=== PATIENT | female | born 2005 | race Two or more races ===

== ENCOUNTER 2024-12-20 07:37 | Emergency (ER) | payer MEDICAID, SELFPAY ==
[2024-12-20 07:39] VITALS: BMI 44.9
[2024-12-20 07:45] VITALS: BP 102/69; PULSE 110; RESP 19; TEMP 37.2; O2SAT 95; BMI 43.0
--- NOTE | 2024-12-20 07:53 | XR_ITS ---
Examination: PA lateral chest 2 views TECHNIQUE: Upright PA lateral chest 2 views Exam date and time: December 20, 2024 0910 hours INDICATIONS: Coughing fever beginning one week ago FINDINGS: Suspicious for early right base pneumonia. Normal heart size Osseous structures are intact IMPRESSION: Suspicious for early right base pneumonia
--- NOTE | 2024-12-20 07:54 | EDNOTE_ITS ---
ED General RME/HPI General Chief complaint: Flu Like Symptoms Stated complaint: COUGH & FEVER (102.2) Time Seen by Provider: 12/20/24 07:46 Source: patient Arrival date/time: 12/20/24 07:37 19-year-old female with no known medical history presents to the emergency room with a chief complaint of a cough and fever x 1 week Mode of arrival: ambulatory Limitations: no limitations Related Data Previous Rx's ?Medication ?Instructions ?Recorded ibuprofen 400 mg tablet 400 mg PO Q8H PRN 3 #20 tabs 10/05/17 ibuprofen 600 mg tablet (IBU) 600 mg PO Q6H #20 tabs 0 12/16/22 cyclobenzaprine 5 mg tablet 5 mg PO TID PRN muscle spa sm #30 08/30/23 tabs naproxen 500 mg tablet 500 mg PO BID PRN pain #30 t abs 08/30/23 amoxicillin 875 mg-potassium 1 tab PO BID 7 days #14 t abs 12/20/24 clavulanate 125 mg tablet Allergies Allergy/AdvReac Type Severity Reaction Status Date / Time No Known Allergies Allergy Verified 10/05/17 10:43 Review of Systems Review of Systems Systems Reviewed: All systems reviewed, normal except as documented Constitutional Constitutional: Reports system reviewed and no additional complaints, except as documented, Denies fatigue, Reports fever(s), Denies headache(s) and Denies weakness Eyes Eyes: Reports system reviewed and no additional complaints, except as documented, Denies blurry vision and Denies change in vision ENT Ears, Nose, Mouth, and Throat: Reports system reviewed and no additional complaints, except as documented, Denies otalgia, Denies headache(s), Denies nasal congestion, Denies throat swelling and Denies vertigo Cardiovascular Cardiovascular: Reports system reviewed and no additional complaints, except as documented, Denies chest pain, Denies dyspnea and Denies dyspnea on exertion Respiratory Respiratory: Reports system reviewed and no additional complaints, except as documented, Denies chest congestion, Reports cough, Denies dyspnea, Denies dyspnea on exertion and Denies wheezing Gastrointestinal Gastrointestinal: Reports system reviewed and no additional complaints, except as documented, Denies abdominal pain, Denies cramping, Denies nausea and Denies vomiting Genitourinary Genitourinary: Reports system reviewed and no additional complaints, except as documented Musculoskeletal Musculoskeletal: Reports system reviewed and no additional complaints, except as documented and Denies back pain Integumentary/Breasts Skin/Breast: Reports system reviewed and no additional complaints, except as documented and Denies wounds Neurologic Neurologic: Reports system reviewed and no additional complaints, except as documented, Denies confusion, Denies headache(s), Denies lack of coordination, Denies vertigo and Denies weakness Psychiatric Psychiatric: Reports system reviewed and no additional complaints, except as documented, Denies anxiety, Denies confusion, Denies depression, Denies paranoia, Denies suicidal ideation and Denies tactile hallucinations Endocrine Endocrine: Reports system reviewed and no additional complaints, except as documented and Denies fatigue Hematologic/Lymphatic Hematologic/Lymphatic: Reports system reviewed and no additional complaints, except as documented and Denies lymphadenopathy Allergic/Immunologic Allergic/Immunologic: Reports system reviewed and no additional complaints, except as documented, Denies throat swelling, Denies urticaria and Denies wheezing Past Medical History Past Medical History CARDIAC: Negative Cardiac Disorders or Congestive Heart Failure RESPIRATORY: Negative Chronic Obstructive Pulmonary Disease (COPD) or Asthma GENITOURINARY: Negative Renal Disease ENDOCRINE: Negative Diabetes Mellitus Type 1 or Diabetes Mellitus Type 2 HEMATOLOGIC: Negative Sickle Cell Disease Family History FAMILY HISTORY: Negative Family Psychiatric Problems, Family Respiratory Disorders, Family Cardiac Disorders or Family Gastrointestinal Problems Social History SMOKING STATUS: Never smoker ED Exam General Limitations: Present no limitations General appearance: Present alert and in no apparent distress Head Head exam: Present atraumatic Eye Eye exam: Present normal appearance, PERRL and EOMI ENT ENT exam: Present normal exam, normal oropharynx and mucous membranes moist Neck Neck exam: Present normal inspection, full ROM and trachea midline Chest Chest inspection: Present normal inspection and symmetric chest wall rise Respiratory Respiratory exam: Present normal lung sounds bilaterally; Absent respiratory distress, wheezes, stridor, accessory muscle use or prolonged expiratory phase Cardiovascular Cardiovascular exam: Present regular rate, normal rhythm and normal heart sounds; Absent tachycardia Abdominal Exam Abdominal exam: Present soft and normal bowel sounds Extremities Exam Extremities exam: Present normal inspection and full ROM Back Exam Back exam: Present normal inspection and full ROM Neurological Exam Neurological exam: Present alert, oriented X3 and CN II-XII intact Psychiatric Psychiatric exam: Present normal affect and normal mood Skin Skin exam: Present warm, dry, intact and normal color Course Quality Measures none Orders Category Date Time Status Bedside COVID-19 Antigen Test NOW Care 12/20/24 07:53 Active Bedside Influenza A&B Antigen Test NOW Care 12/20/24 07:53 Completed XR chest 2V Stat Exams 12/20/24 07:53 Completed Strep A Rapid Stat Lab 12/20/24 08:02 Completed Vital Signs Vital signs: Vital Signs Temperature 98.9 F 12/20/24 07:45 Pulse Rate 110 H 12/20/24 07:45 Respiratory Rate 19 12/20/24 07:45 Blood Pressure 102/69 12/20/24 07:45 Pulse Oximetry (%) 95 12/20/24 07:45 Oxygen Delivery Method Room Air 12/20/24 07:45 O2 saturation 95% within normal limits Discharge Plan Plan Patient Disposition: HOME (Self Care) Discharge Disposition comment: Stable Prescriptions/Referrals Prescriptions/Med Rec: New amoxicillin-pot clavulanate 875-125 mg tablet 1 tab PO BID 7 Days Qty: 14 0RF No Action ibuprofen 400 mg tablet 400 mg PO Q8H PRN (Reason: 3) Qty: 20 0RF naproxen 500 mg tablet 500 mg PO BID PRN (Reason: pain) Qty: 30 0RF cyclobenzaprine 5 mg tablet 5 mg PO TID PRN (Reason: muscle spasm) Qty: 30 0RF ibuprofen [IBU] 600 mg tablet 600 mg PO Q6H Qty: 20 0RF Referrals: No Primary/Family,Physician [Primary Care Provider] - In 1 week Problem List Clinical Impression: Community acquired pneumonia Patient/Caregiver Discharge Instructions Education Materials: ED Pneumonia (Adult) Additional Instructions: Please follow-up with your primary care provider in the next 24 to 48 hours Chest x-ray showed pneumonia. Antibiotics are sent to your pharmacy please pick them up and take them as indicated Your COVID-19, influenza, strep test were all negative. For any evidence of worsening signs or symptoms return to the emergency room immediately Print Language: Telugu Stand Alone Forms: [facility] Award Info., Work/School Release, Patient Portal Info Letter PA/CAD DRAFTER Supervising Physician LAURIE/SHARA Supervising Physician: Dr Sinclair MDM Narrative MDM hospital course (for use when minimal MDM required): 19-year-old female with no known medical history presents to the emergency room with a chief complaint of a cough and fever x 1 week Patient is hemodynamically stable and in no apparent distress. She is afebrile not tachypneic and O2 saturation of 95% on room air Physical examination shows clear bilateral lung sounds there is no wheezing or any abnormal breath sounds Chest x-ray was completed and shows early right-sided pneumonia. Antibiotics were sent to the patient's pharmacy. COVID-19 influenza and strep are all negative Patient was discharged and educated to follow-up with primary care provider in the next 24 to 48 hours and return to the emergency room for any evidence of worsening signs or symptoms Clinical Information Provided by: patient Medical Records reviewed None and [facility] Meds/Rx considered, not ordered describe: Rx given Labs/Rad/Tests considered, not ordered None Chronic Illness/Social Conditions which may negatively complicate care or outcome(s)-explain: None or not applicable EKG EKG not done Labs Labs: none Imaging Imaging interpretation: interpreted by me Imaging Interpretation(s): Chest [id number]: Suspicious for early right base pneumonia. Normal heart size Osseous structures are intact IMPRESSION: Suspicious for early right base pneumonia Medication Administration(s) Rx given Diagnosis Differential Diagnosis ED Complaint MDM: Community-acquired pneumonia/influenza/COVID-19/pharyngitis Diagnoses ruled out and/or further discussions: Influenza/COVID-19/pharyngitis
[2024-12-20 08:30] LABS: Strep A Rapid Negative (Negative)
== END 2024-12-20 08:58 | disposition home or self-care (01) ==
PROVIDERS: Nurse Practitioner Family; Emergency Provider Emergency Medicine
DX: J18.9 Pneumonia, unspecified organism (principal)
CPT/HCPCS: 71046; 87400; 87651; 87811; 99283

== ENCOUNTER 2025-03-21 21:20 | Emergency (ER) | payer MEDICAID, SELFPAY ==
[2025-03-21 21:22] VITALS: BMI 47.2
--- NOTE | 2025-03-21 21:31 | EDNOTE_ITS ---
ED OB Contraction Preg RMI/HPI General Chief complaint: Vaginal Bleeding Stated complaint: VAG BLEEDING IUD PLACED 02/04/25 Time Seen by Provider: 03/21/25 21:35 Arrival date/time: 03/21/25 21:20 RME / HPI RME / HPI Narrative: See MDM. Related Data Previous Rx's ?Medication ?Instructions ?Recorded ibuprofen 400 mg tablet 400 mg PO Q8H PRN 3 #20 tabs 10/05/17 ibuprofen 600 mg tablet (IBU) 600 mg PO Q6H #20 tabs 0 12/16/22 cyclobenzaprine 5 mg tablet 5 mg PO TID PRN muscle spa sm #30 08/30/23 tabs naproxen 500 mg tablet 500 mg PO BID PRN pain #30 t abs 08/30/23 acetaminophen 300 mg-codeine 30 mg 2 tab PO Q8H PRN pa in #20 tabs 03/22/25 tablet cefdinir 300 mg capsule 300 mg PO BID #14 caps 03/22 ondansetron 4 mg disintegrating 4 mg PO TID PRN nausea and 03/22/25 tablet vomiting 30 days #10 tabs Allergies Allergy/AdvReac Type Severity Reaction Status Date / Time No Known Allergies Allergy Verified 03/21/25 21:25 Review of Systems Review of Systems Systems Reviewed: All systems reviewed, normal except as documented Past Medical History Past Medical History CARDIAC: Negative Cardiac Disorders or Congestive Heart Failure RESPIRATORY: Negative Chronic Obstructive Pulmonary Disease (COPD) or Asthma GENITOURINARY: Negative Renal Disease ENDOCRINE: Negative Diabetes Mellitus Type 1 or Diabetes Mellitus Type 2 HEMATOLOGIC: Negative Sickle Cell Disease Family History FAMILY HISTORY: Negative Family Psychiatric Problems, Family Respiratory Disorders, Family Cardiac Disorders or Family Gastrointestinal Problems Social History SMOKING STATUS: Never smoker ED Exam Narrative Physical exam: As noted in MDM. Course Quality Measures none Orders Category Date Time Status CT Screening NOW Care 03/21/25 21:32 Completed Saline [Insert IV] NOW Care 03/21/25 21:31 Completed Straight [In and Out Catheter] X1 Care 03/21/25 21:[address] abdomen pelvis w con Stat Exams 03/21/25 21:32 Completed US transvaginal Stat Exams 03/21/25 21:32 Completed XR chest 1V portable Stat Exams 03/21/25 21:33 Completed Bilirubin,Direct Stat Lab 03/21/25 22:10 Completed Blood Culture (Lab) Stat Lab 03/21/25 22:30 Received CBC Stat Lab 03/21/25 22:10 Completed CMP [Comprehensive Metabolic Panel] Stat Lab 03/21/25 22:10 Completed CRP [C-Reactive Protein] Stat Lab 03/21/25 22:10 Completed ESR [Sed Rate (ESR)] Stat Lab 03/21/25 22:10 Completed HCG Qualitative,Urine Stat Lab 03/21/25 22:10 Completed HCG,Qualitative Serum Stat Lab 03/21/25 22:10 Completed Lactate (Lactic Acid) Stat Lab 03/21/25 22:10 Completed Magnesium Stat Lab 03/21/25 22:10 Completed PT [Prothrombin Time with INR] Stat Lab 03/21/25 22:10 Completed PTT [Partial Thromboplastin Time] Stat Lab 03/21/25 22:10 Completed Procalcitonin Stat Lab 03/21/25 22:10 Completed UA, C/S IF [Urinalysis, C/S if Indicated] Stat Lab 03/21/25 22:10 Completed Urine Culture Stat Lab 03/21/25 22:10 Received HYDROmorphone INJ [Dilaudid Inj] Med 03/22/25 00:29 Discontinued 1 mg IVP X1 ONE HYDROmorphone INJ [Dilaudid Inj] Med 03/22/25 01:24 Discontinued 1 mg IVP X1 ONE Ketorolac Inj [Toradol Inj] Med 03/21/25 21:31 Discontinued 30 mg IVP X1 ONE Morphine Inj Med 03/21/25 21:31 Discontinued 4 mg IVP X1 ONE Ondansetron Inj [Zofran Inj] Med 03/21/25 21:31 Discontinued 4 mg IVP X1 ONE Ondansetron Inj [Zofran Inj] Med 03/22/25 00:29 Discontinued 4 mg IVP X1 ONE Sodium Chloride 0.9% 1000 ml [Ns] 1,000 ml Med 03/21/25 21:31 Discontinued IV 999 mls/hr cefTRIAXone/D5w 1gm IV premix [Rocephin/D5w 1gm IV Med 03/21/25 23:26 Discontinued premix] 1 gm in 50 ml IV X1 Vital Signs Vital signs: Vital Signs Temperature 98.1 F 03/21/25 21:39 Pulse Rate 88 03/21/25 21:39 Respiratory Rate 20 03/21/25 21:39 Blood Pressure 120/77 03/21/25 21:39 Pulse Oximetry (%) 98 03/21/25 21:39 Oxygen Delivery Method Room Air 03/21/25 21:39 PROCEDURES: Foreign Body Removal Time Out Performed: yes Site: vagina Description of foreign body: other (IUD) Sedation/Analgesia: none Technique: removal with forceps Confirmed by:: direct visualization and patient report Complications: none Post-procedure exam: awake, alert, normal BP, normal HR and normal O2 sat Neurovascular: no change from pre-procedure Vaginal Bleeding MDM Narrative MDM Narrative: This section includes all my notes and documentations, including HPI, PE, and ED course. Maurilio Phipps MD HPI: 19yo female here with complaints of cramping and vaginal bleeding for the last few days. Patient had an IUD placed about a month ago. No other complaints reported. ROS: All negative except as documented in HPI. Physical Exam: General: Alert and oriented. In obvious pain. Eyes: Conjunctivae and lids clear. ENT: No nasal congestion. Neck: Supple. Heart: RRR. Lungs: No respiratory distress. Good air movement. No rhonchi, wheezing, rales. Abdomen: Soft with pelvic tenderness. Normal bowel sounds. No distension. No rebound or guarding. Back: No CVA tenderness. Skin: Warm and dry. Neuro: Alert and oriented X 3. I reviewed all diagnostic test results. My interpretation of the chest x-ray is NAD. My review of the transvaginal US report is intrauterine device in the lower uterine segment and uterine body. My review of the CT abdomen pelvis report is intrauterine device abnormally low in position in the lower uterine segment. Blood tests remarkable unremarkable. UA remarkable for positive leukocyte esterase, 43799 RBCs, and 187 WBCs. At this point, diagnoses include: Pelvic pain and bleeding due to IUD UTI Treatment here included Toradol, Morphine, Zofran, Rocephin, IV fluid, Dilaudid. I discussed the case with our CONSULTING APPLICATION ENGINEER. About the presentation and exam and diagnostics and treatments here. And possible need of further care in the hospital. Recommended IUD removal and outpatient management. IUD was removed successfully, see procedure note. Significant improvement noted. Based on my best medical judgment, made decision no further evaluation or treatment indicated at this time. Patient understands and agrees to the discharge instructions customized and printed, see below. Discharge instructions from Dr. Phipps: 1. After evaluation, you are cramping and bleeding was due to your uterus trying to get the IUD out. 2. The symptoms will get better as we remove the IUD for you. 3. Ibuprofen 800 mg every 6-8 hours today and tomorrow to decrease inflammation then as needed. 4. Tylenol with codeine for severe pain. 5. Take cefdinir for UTI. To flush your urinary tract, increase oral fluid and maintain clear urine. If dark or yellow, increase oral fluid. Zofran for nausea/vomiting. 5. See a private doctor on 03/24/2025 for recheck and further care. Ask to review all test results and official radiology reports, to make sure you receive all necessary follow-ups and monitoring, including final urine culture results from today. 6. Seek immediate medical care with worsening, fever, or with any concerns. Maurilio Phipps MD Patient data External records reviewed:: [facility] previous records (Per chart review, patient has no relevant previous ED visits.) Clinical information provided by:: patient Social determinants that could affect healthcare access:: none Patient has the following chronic illnesses:: none How is presenting disease/condition affected by chronic disease/condition?: no chronic disease Evaluation data The following diagnostics were reviewed and interpreted by me:: lab results and radiology exam(s) Lab and/or radiology exams considered but not ordered:: none Interpretation Summary: I reviewed all diagnostic test results. My interpretation of the chest x-ray is NAD. My review of the transvaginal US report is intrauterine device in the lower uterine segment and uterine body. My review of the CT abdomen pelvis report is intrauterine device abnormally low in position in the lower uterine segment. Blood tests remarkable unremarkable. UA remarkable for positive leukocyte esterase, 41039 RBCs, and 187 WBCs. Medications / Prescriptions Medications or Prescriptions considered but not ordered:: none Medication administrations:: Medication Administration History Discontinued Medications Hydromorphone HCl (Hydromorphone Inj 2 Mg/Ml Vial) 1 mg IVP X1 ONE Stop: 03/22/25 00:30 Last Admin: 03/22/25 00:37 Dose: 1 mg Documented By: TABITHA Hydromorphone HCl (Hydromorphone Inj 2 Mg/Ml Vial) 1 mg IVP X1 ONE Stop: 03/22/25 01:25 Last Admin: 03/22/25 01:36 Dose: 1 mg Documented By: Sodium Chloride (Ns) 1,000 mls @ 999 mls/hr IV .Q1H1M ONE Stop: 03/21/25 22:31 Last Infusion: 03/21/25 23:21 Dose: Infused Documented By: Admin: 03/21/25 22:12 Dose: 999 mls/hr Documented By: TABITHA Ceftriaxone Sodium/Dextrose (Rocephin/D5w 1gm Iv Premix) 1 gm in 50 mls @ 100 mls/hr IV X1 ONE Stop: 03/21/25 23:55 Last Infusion: 03/22/25 01:30 Dose: Infused Documented By: Admin: 03/22/25 00:37 Dose: 100 mls/hr Documented By: TABITHA Ketorolac Tromethamine (Ketorolac Inj 30 Mg/Ml Vial) 30 mg IVP X1 ONE Stop: 03/21/25 21:32 Last Admin: 03/21/25 22:11 Dose: 30 mg Documented By: TABITHA Morphine Sulfate (Morphine Sulf Inj 10 Mg/Ml Vial) 4 mg IVP X1 ONE Stop: 03/21/25 21:32 Last Admin: 03/21/25 22:11 Dose: 4 mg Documented By: TABITHA Ondansetron HCl (Ondansetron Inj 2 Mg/Ml Inj 2 Ml) 4 mg IVP X1 ONE; Protocol Stop: 03/21/25 21:32 Last Admin: 03/21/25 22:11 Dose: 4 mg Documented By: TABITHA Ondansetron HCl (Ondansetron Inj 2 Mg/Ml Inj 2 Ml) 4 mg IVP X1 ONE; Protocol Stop: 03/22/25 00:30 Last Admin: 03/22/25 00:52 Dose: Not Given Documented By: TABITHA Non-Admin Reason: Patient Refused Toradol, Morphine, Zofran, Rocephin, IV fluid, Dilaudid Consultations Consultation(s) initiated? (list below): No Diagnosis Vaginal Bleeding Differential Diagnosis: missed , threatened , dysfunctional uterine bleeding, menometrorrhagia, incomplete , ectopic without intrauterine and vaginal bleeding Most likely diagnosis given after review of the tests above:: At this point, diagnoses include: Pelvic pain and bleeding due to IUD UTI Admission Indicated Admission indicated?: not indicated Explain why admission is indicated or not indicated:: With significant improvement and no condition needing emergent intervention, there was no indication for admission. Admission Request Was there a request for admission?: No Disposition Plan Disposition Plan: Discharge Discharge Attestation Discharge Attestation: The patient and all family members were given an opportunity to ask questions and understood the discharge instructions. Discharge instructions specifically effects, indications for sooner follow up or return to the emergency department, and the expected course of current diagnosis. Patient condition: Stable Discharge Plan Plan Patient Disposition: HOME (Self Care) Prescriptions/Referrals Prescriptions/Med Rec: New acetaminophen-codeine 300-30 mg tablet 2 tab PO Q8H MDD 6 PRN (Reason: pain) Qty: 20 0RF ondansetron 4 mg tablet,disintegrating 4 mg PO TID PRN (Reason: nausea and vomiting) 30 Days Qty: 10 0RF cefdinir 300 mg capsule 300 mg PO BID Qty: 14 0RF No Action ibuprofen 400 mg tablet 400 mg PO Q8H PRN (Reason: 3) Qty: 20 0RF naproxen 500 mg tablet 500 mg PO BID PRN (Reason: pain) Qty: 30 0RF cyclobenzaprine 5 mg tablet 5 mg PO TID PRN (Reason: muscle spasm) Qty: 30 0RF ibuprofen [IBU] 600 mg tablet 600 mg PO Q6H Qty: 20 0RF Referrals: No Primary/Family,Physician [Primary Care Provider] - In 1 week Problem List Clinical Impression: Pelvic pain, Vaginal bleeding, Remove/insert IUD, UTI (urinary tract infection) Patient/Caregiver Discharge Instructions Discharge Activity: activity as tolerated Education Materials: ED CYSTITIS Female Adult Additional Instructions: Discharge instructions from Dr. Phipps: 1. After evaluation, you are cramping and bleeding was due to your uterus trying to get the IUD out. 2. The symptoms will get better as we remove the IUD for you. 3. Ibuprofen 800 mg every 6-8 hours today and tomorrow to decrease inflammation then as needed. 4. Tylenol with codeine for severe pain. 5. Take cefdinir for UTI. To flush your urinary tract, increase oral fluid and maintain clear urine. If dark or yellow, increase oral fluid. Zofran for nausea/vomiting.? 5. See a private doctor on 03/24/2025 for recheck and further care. Ask to review all test results and official radiology reports, to make sure you receive all necessary follow-ups and monitoring, including final urine culture results from today. 6. Seek immediate medical care with worsening, fever, or with any concerns. Print Language: Korean Stand Alone Forms: [facility] Award Info., Work/School Release, Patient Portal Info Letter
--- NOTE | 2025-03-21 21:32 | XR_ITS ---
Examination: Transvaginal ultrasound of the pelvis, complete Technique: Transvaginal sonographic images pelvis performed using pena scale imaging Exam date and time: March 21, 2025 10:56 PM INDICATIONS: Heavy vaginal bleeding beginning 2 days ago FINDINGS: Uterus 7.8 cm Intrauterine device in the lower uterine segment and uterine body No uterine mass Endometrial stripe 0.5 cm Right ovary 4.2 cm arterial flow 3.4 cm cyst Left ovary is obscured by bowel gas IMPRESSION: Intrauterine device in the lower uterine segment and uterine body No uterine mass.
--- NOTE | 2025-03-21 21:32 | XR_ITS ---
Examination: CT abdomen with intravenous contrast CT pelvis with intravenous contrast 2-D coronal reconstructions 2-D sagittal reconstructions Date and time of exam:March 21, 2025, 11:35 PM Comparison October 05, 2017 INDICATIONS: Pelvic pain and bleeding beginning 2 days ago.. CTDI: vol (mGy) 21.9 DLP: (mGycm) 1386 Technique: Multiple axial sections of the abdomen and pelvis have been obtained. 64 slice high-resolution scanner used. 3 mm axial sections have been obtained, post intravenous injection 60 Isovue 370. 2-D sagittal, coronal reconstructions obtained. Low dose protocols were performed. One or more of the following dose reduction techniques were used; automated exposure control, adjustment of the mA and/or KV according to patient size, use of iterative reconstruction technique. Findings: Diffuse fatty infiltration throughout the liver No gallstones No pancreatic or adrenal mass. No renal or ureteral calculi, no hydronephrosis 12 mm fat-containing umbilical hernia No periappendiceal inflammatory change Intrauterine device abnormally low in position No uterine mass 3.5 cm right ovarian cyst Osseous structures intact IMPRESSION: Intrauterine device abnormally low in position in the lower uterine segment 3.5 cm right ovarian cyst
--- NOTE | 2025-03-21 21:33 | XR_ITS ---
Examination: AP chest single view TECHNIQUE: AP portable upright chest single view Date and time: March 21, 2025 2145 hours INDICATIONS: Shortness of breath today. FINDINGS: Normal heart size. The lungs are clear. The osseous structures are intact IMPRESSION: No active disease.
[2025-03-21 21:39] VITALS: BP 120/77; PULSE 88; RESP 20; TEMP 36.7; O2SAT 98
[2025-03-21] MEDS: KETOROLAC INJ 30 MG/ML VIAL IVP (22:11)
[2025-03-21] MEDS: MORPHINE SULF INJ 10 MG/ML VIAL 4 MG IVP (22:11)
[2025-03-21] MEDS: ONDANSETRON INJ 2 MG/ML INJ 2 ML 4 MG IVP (22:11)
[2025-03-21] MEDS: SODIUM CHLORIDE 0.9% 1000 ML 1,000 ML 999 ML IV (22:12)
[2025-03-21 22:22] LABS: Basophils # (Auto) 0.1 Thou/mm3 (0.0-0.2); Basophils % (Auto) 0 % (0-2.5); Eosinophils # (Auto) 0.1 Thou/mm3 (0.0-0.5); Eosinophils % (Auto) 1 % (0-10); Hematocrit 36.1 % (36.0-46.0); Hemoglobin 11.5 g/dL (12.0-16.0); Immature Granulocytes Auto 0.03 Thou/mm3 (0.00-0.00); Lactate (Lactic Acid) 1.0 mMol/L (0.4-2.0); Lymphocytes # (Auto) 3.6 Thou/mm3 (1.0-4.8); Lymphocytes % (Auto) 27 % (10-50); Mean Corpuscular HGB Conc 31.9 g/dl (31.0-37.0); Mean Corpuscular Hemoglobin 28.2 pg (25.0-35.0); Mean Corpuscular Volume 89 fL (80-100); Monocytes # (Auto) 1.3 Thou/mm3 (0.0-0.8); Monocytes % (Auto) 9 % (0-12); Neutrophils # (Auto) 8.5 Thou/mm3 (1.8-7.7); Neutrophils % (Auto) 63 % (37-80); Nucleated Red Blood Cell # 0.00 Thou/mm3 (0.00-0.00); Nucleated Red Blood Cell % 0 /100 WBC (0); Platelet Count 437 Thou/mm3 (140-440); RDW Standard Deviation 42.6 fL (36.4-46.3); Red Blood Count 4.08 Miln/mm3 (4.00-5.20); White Blood Count 13.7 Thou/mm3 (4.5-11.0)
[2025-03-21 22:24] LABS: Collection Type, Urine Clean Catch; Squamous Epithelial Cell,Urine 0 /hpf (0-5)
[2025-03-21 22:33] LABS: Bilirubin,Urine Negative (Negative); Blood,Urine 3+ (Negative); Color,Urine Dark-Brown (Lt Yel-Yel); Glucose, Urine Negative (Negative); Ketones,Urine Negative (Negative); Leukocyte Esterase,Urine Positive (Negative); Nitrite,Urine Negative (Negative); PH,Urine 7.0 (5.0-7.0); Protein,Urine 1+ (Neg - Trace); RBC,Urine 56279 /hpf (0-3); Specific Gravity,Urine 1.007 (1.001-1.035); Urobilinogen,Urine Negative mg/dL (0.0-1.0); WBC,Urine 187 /hpf (0-5)
[2025-03-21 22:34] LABS: Clarity,Urine Turbid (Clear/Hazy); Culture Indicated,Urine Yes
[2025-03-21 22:35] LABS: Sed Rate (ESR) 30 mm/hr (0-20)
[2025-03-21 22:37] LABS: HCG,Qualitative Serum Negative
[2025-03-21 22:38] LABS: INR 1.0 (0.9-1.3); Partial Thromboplastin Time 29.5 Seconds (22.0-36.0); Prothrombin Time 11.0 Seconds (9.0-12.2)
[2025-03-21 22:42] LABS: Alanine Aminotransferase 11 U/L (10-49); Albumin, Serum 4.2 gm/dL (3.5-5.0); Albumin/Globulin Ratio 1.4 (1.2-2.2); Alkaline Phosphatase 120 U/L (46-116); Anion Gap 9 (7-16); Aspartate Amino Transferase 17 U/L (0-34); BUN/Creatinine Ratio 18 Ratio (12-20); Bilirubin,Direct < 0.1 mg/dL (0.0-0.3); Bilirubin,Total 0.2 mg/dL (0.3-1.2); Blood Urea Nitrogen 9 mg/dL (9-23); C-Reactive Protein 1.0 mg/dL (0.0-0.9); Calcium 9.5 mg/dL (8.3-10.6); Calcium (Corrected) 9.5 mg/dL (8.5-10.1); Carbon Dioxide 23.6 mMol/L (20.0-31.0); Chloride 107 mMol/L (98-107); Creatinine (Component) 0.5 mg/dL (0.6-1.3); Estimated Creatinine Clearance 226.3 mL/min (>60); Globulin 2.9 gm/dL (2.3-3.5); Glucose 94 mg/dL (74-106); Magnesium 1.6 mg/dL (1.6-2.6); Osmolality,Calculated 278 (275-295); Potassium 3.9 mMol/L (3.4-5.1); Sodium 140 mMol/L (136-145); Total Protein 7.1 gm/dL (5.7-8.2); eGFR > 60 See Note
[2025-03-21 22:43] LABS: HCG Qualitative,Urine Negative
[2025-03-21 22:52] LABS: Procalcitonin < 0.04 ng/ml (0.0-0.49)
[2025-03-22] MEDS: cefTRIAXone/D5w 1gm IV premix 1 GM/50 ML BAG IV (00:37)
[2025-03-22] MEDS: HYDROmorphone INJ 2 MG/ML VIAL 1 MG IVP ×2 (00:37→01:36)
== END 2025-03-22 01:49 | disposition home or self-care (01) ==
PROVIDERS: Emergency Provider Emergency Medicine
DX: T83.83XA Hemorrhage due to genitourinary prosthetic devices, implants and grafts, initial encounter (principal); N93.9 Abnormal uterine and vaginal bleeding, unspecified; N39.0 Urinary tract infection, site not specified; Y76.8 Miscellaneous obstetric and gynecological devices associated with adverse incidents, not elsewhere classified; Y84.8 Other medical procedures as the cause of abnormal reaction of the patient, or of later complication, without mention of misadventure at the time of the procedure
CPT/HCPCS: 36415; 71045; 74177; 76830; 80053; 81001; 81025; 82248; 83605; 83735; 84145; 84703; 85025; 85610; 85652; 85730; 86140; 87040; 87086; 96361; 96365; 96375; 96376; 99284; A4649; J0696; J1171; J1885; J2270; J2405; J7030; Q9967

== ENCOUNTER 2025-04-20 17:05 | Emergency (ER) | payer MEDICAID, SELFPAY ==
[2025-04-20 17:24] VITALS: BP 106/71; PULSE 88; RESP 20; TEMP 37; O2SAT 98; BMI 45.8
--- NOTE | 2025-04-20 17:27 | XR_ITS ---
Examination: PA lateral chest 2 views Technique: Upright PA lateral chest 2 views Date and time: April 20, 2025, 1730 hrs. Indications: Coughing fever beginning 3 days ago Findings: Normal heart size. Lungs are clear. The osseous structures are intact. Impression: No active disease.
--- NOTE | 2025-04-20 17:27 | PD.EDRME ---
Rapid Medical Screening Exam RME Arrival date/time: 04/20/25 17:05 19-year-old female with no known medical history presents to the emergency room with a chief complaint of cough, congestion, sore throat, fevers x 2 days I have greeted and performed a focused initial assessment of this patient. A comprehensive ED assessment and evaluation of the patient, analysis of all test results, and completion of the medical decision making process will be conducted by additional ED providers. Chief Complaint: Fever Vital signs: Vital Signs Temperature 98.6 F 04/20/25 17:24 Pulse Rate 88 04/20/25 17:24 Respiratory Rate 20 04/20/25 17:24 Blood Pressure 106/71 04/20/25 17:24 Pulse Oximetry (%) 98 04/20/25 17:24 Oxygen Delivery Method Room Air 04/20/25 17:24 Vital signs reviewed by provider: Yes
--- NOTE | 2025-04-20 21:12 | PC.NURSE ---
PT CALLED BACK FROM LOBBY NO ANSWER
--- NOTE | 2025-04-20 21:21 | PC.NURSE ---
pt called back from lobby no answer
--- NOTE | 2025-04-20 21:44 | PC.NURSE ---
PT CALLED BACK FROM LOBBY NO ANSWER
== END 2025-04-20 21:47 | disposition left against medical advice (07) ==
PROVIDERS: Emergency Provider Emergency Medicine
DX: R50.9 Fever, unspecified (principal); R05.9 Cough, unspecified; Z53.29 Procedure and treatment not carried out because of patient's decision for other reasons
CPT/HCPCS: 71046; 87400; 87811; 99283